=== PATIENT | female | born 2000 | race Two or more races ===

== ENCOUNTER 2023-08-30 11:22 | Emergency (ER) | payer OTHER ==
[~2023-08-30] VITALS: Ht 162.6 cm; Wt 58.9 kg
[2023-08-30 12:22] LABS: Urine Bacteria None Seen /hpf (None Seen)
[2023-08-30 12:40] LABS: Urine Blood Negative /uL (Negative); Urine Clarity Clear (Clear); Urine Color Colorless (Yellow); Urine Protein, UAD Negative (Negative); Urine Urobilinogen Normal (Negative); Urine WBC 2 /hpf (0 - 5); Urine pH 7.5 (5.0-9.0)
[2023-08-30 13:36] VITALS: BP 112/64; PULSE 91; RESP 20; TEMP 98.1; O2SAT 98
== END 2023-08-30 13:37 | disposition home or self-care (01) ==
LOC: ER 11:22
DX: O26.892 Other specified pregnancy related conditions, second trimester (principal); Z3A.20 20 weeks gestation of pregnancy
CPT/HCPCS: 36415; 76805; 81001; 84702